=== PATIENT | female | born 1995 | race Caucasian/White ===

== ENCOUNTER 2017-10-18 16:23 | Emergency (ER) | payer OTHER | END 2017-10-18 18:04 | disposition home or self-care (01) | LOC: E/R 16:23 | DX: G40.909 Epilepsy, unspecified, not intractable, without status epilepticus (principal); S09.90XA Unspecified injury of head, initial encounter; W19.XXXA Unspecified fall, initial encounter; Y92.009 Unspecified place in unspecified non-institutional (private) residence as the place of occurrence of the external cause | CPT/HCPCS: 99283; Z7502 ==

== ENCOUNTER 2017-11-16 01:40 | Emergency (ER) | payer OTHER | END 2017-11-16 05:34 | disposition left against medical advice (07) | LOC: FTE 01:40 | DX: M25.531 Pain in right wrist (principal) | CPT/HCPCS: 99282; Z7502 ==